=== PATIENT | male | born 1985 | race African-American/Black ===

== ENCOUNTER 2019-02-20 23:04 | Emergency (ER) | payer MEDICAID ==
[~2019-02-20] VITALS: Ht 175.3 cm; Wt 86.4 kg
[2019-02-21] MEDS ORDERED: KETOROLAC 60MG/2ML VIAL IM STA (01:31)
[2019-02-21 03:39] VITALS: BP 121/81
== END 2019-02-21 03:55 | disposition home or self-care (01) ==
LOC: ER 23:04
DX: S93.601A Unspecified sprain of right foot, initial encounter (principal); W10.8XXA Fall (on) (from) other stairs and steps, initial encounter; Y93.89 Activity, other specified; S93.401A Sprain of unspecified ligament of right ankle, initial encounter; Y92.89 Other specified places as the place of occurrence of the external cause
CPT/HCPCS: 29515; 73610; 73630; 96372; 99283; J1885; Z7610